=== PATIENT | male | born 1990 | race Caucasian/White ===

== ENCOUNTER 2016-09-05 18:45 | Emergency (ER) | payer OTHER ==
--- NOTE | 2016-09-05 19:42 | RAD ---
Exam: Three-view right ankle COMPARISON: 11/21/2011, 05/04/2011 INDICATION: Right ankle pain and swelling, ground-level fall on 09/02/2016. FINDINGS: AP, lateral and oblique views of the right ankle were obtained. Soft tissue swelling is seen laterally. There is a transverse lucency identified at the level of the physeal scar in the distal fibula seen on the AP view which does raise concern for nondisplaced fracture; patient does have a history of prior fracture in this location and therefore alternatively this could be artifact. There is no significant joint effusion. Ankle mortise is intact. IMPRESSION: Transverse lucency at the level of physeal scar in the distal right fibula with associated soft tissue swelling. Recurrent nondisplaced fracture in this location cannot be excluded.
[2016-09-05] MEDS ORDERED: HYDROCODONE/ACETAMINOPHEN 5/325MG TABLET ONE (20:11)
[2016-09-05] MEDS ORDERED: IBUPROFEN 600 MG TABLET ONE (20:11)
== END 2016-09-05 20:43 | disposition home or self-care (01) ==
LOC: ED 18:45
DX: S82.831A Other fracture of upper and lower end of right fibula, initial encounter for closed fracture (principal); F17.210 Nicotine dependence, cigarettes, uncomplicated; W18.30XA Fall on same level, unspecified, initial encounter; Y93.01 Activity, walking, marching and hiking; Y92.9 Unspecified place or not applicable
CPT/HCPCS: 99283; 73610; 99284; A9270 ×2